=== PATIENT | male | born 1950 | race Caucasian/White ===

== ENCOUNTER 2016-08-22 01:50 | Emergency (ER) | payer BC ==
[2016-08-22] MEDS ORDERED: ONDANSETRON HCL 4 MG/2 ML VIAL IV ONE (01:51)
[2016-08-22] MEDS ORDERED: HYDROmorphone 1 MG INJECTION IV ONE ×2 (01:51→02:11)
[2016-08-22] MEDS ORDERED: NS 1,000 ML IV ONE (01:51)
[2016-08-22] MEDS ORDERED: HYDROmorphone 1 MG INJECTION ONE ×2 (01:52→02:12)
[2016-08-22] MEDS ORDERED: ONDANSETRON HCL 4 MG/2 ML VIAL ONE (01:52)
--- NOTE | 2016-08-22 01:55 | EDPRACDOC ---
- General Information Stated Complaint: KIDNEY STONE Time Seen by Provider: 08/22/16 01:51 Information Source: Patient Mode Of Arrival: Ambulance Home Medications: Home Medications Oxycodone Immediate Release [Oxycodone Immediate Release (OxyIR)] 1 - 2 tabs PO Q4H PRN 10/03/14 Ketorolac Tromethamine 10 mg PO Q6H PRN #20 tab 08/22/16 Ondansetron [Zofran Odt] 4 mg PO Q6H PRN #20 tab.rapdis 08/22/16 Oxycodone Immediate Release [Oxycodone Immediate Release (OxyIR)] 5 mg PO Q6H PRN #30 tab 08/22/16 Promethazine HCl [Phenergan] 25 mg MN Q8H PRN #12 supp 08/22/16 Promethazine [Phenergan] 25 mg PO Q6-8H PRN #20 tab 08/22/16 Tamsulosin HCl [Flomax] 0.4 mg PO DAILY #10 cap 08/22/16 Allergies/Adverse Reactions: Allergies Allergy/AdvReac Type Severity Reaction Status Date / Time No Known Allergies Allergy Verified 10/03/14 07:22 - History of Present Illness Onset: YESTERDAY HPI: PT PRESENTS WITH LEFT FLANK PAIN THAT HE STATES BEGAN YESTERDAY AND THEN WORSENED TONIGHT. STATES HE HAS HX OF KIDNEY STONES. STATES HE HAS HAD NAUSEA AND VOMITING TONIGHT. DENIES FEVER, CHILLS OR DIARRHEA. Pain Began: Reports: Spontaneous Pain Location: Reports: Flank (LEFT FLANK) Pain Severity: Moderate Pain Quality: Reports: Sharp, Stabbing Numbness: Denies: Toes, Foot, Leg, Thigh, Saddle, Other Weakness: Denies: Toes, Foot, Leg, Thigh, Other Oral Intake: Decreased Urinary Output: Normal Modifying Factors: improves with: Movement, Twisting, Breathing, Walking Relevant History of: Reports: Urolithiasis Associated Signs and Symptoms: Reports: Nausea, Vomiting ED Past Medical History - History Reviewed Yes Nurses notes reviewed and agree except as marked - Patient Medical History Respiratory History: Reports: Pneumonia (JULY 2014) GI/ History: Reports: Kidney Stones Musculoskeletal History: Reports: Arthritis Systemic History: Denies: Anemia - Family Medical History Reports: Diabetes (grandmother), Cancer (grandfather, grandmother, mother, father). Denies: Hypertension, Stroke, Cardiac Disorders - Social Medical History Smoking Status: Former smoker EDM Review of Systems - Review of Systems ROS Negative Except as Marked: Yes All systems reviewed and were negative except as marked - Physical Exam Constitutional: Alert (PT APPEARS VERY UNCOMFORTABLE) Oriented to: Time, Person, Place Last recorded Vital Signs: Oxygen Pulse Oxygen Saturation O2 Device Oxygen Flow Rate Fraction of Inspired Oxygen ( FIO2) - HEENT Head: Normal ( normocephalic) Eye Exam: Normal (PERRL, EOMI, Sclera white) Oropharynx: Normal (Pharynx:Moist without exudate,Gums-no swelling) Tympanic Membrane: Normal Nose: No Symptoms Reported (septum midline) Neck: Normal (FROM, trachea at midline) - Respiratory/Cardiovascular Respiratory: Normal - CTA (BBS clear to auscultation without adventitious sounds ) Cardiovascular: Normal (RRR without murmur, gallop or rub) - GI Auscultation: Normal (NABS) Palpation: Normal (Soft,No rebound or guarding, non distended) Tenderness: Moderate, Other (LEFT FLANK) Almeida's Sign: Negative Rectal Exam: Deferred - Musculoskeletal Back: Normal (Non-Tender) Extremities: Normal (Normal tone, Pulses 2+ No cyanosis or edema, FROM) - Integumentary Skin: Normal, Warm, Dry Lymphatics: Normal (no adenopathy) - Neurologic Memory Impaired: Normal Motor Function: Normal (Normal tone, Pulses 2+ No cyanosis or edema, FROM) Cranial Nerve: Normal (CN II-X11 intact sensation, strength 5/5) Cerebellar: Normal Mood Description: Normal Perception: Normal - Differential Diagnosis Urinary obstruction, Urolithiasis, Urinary tract infection - Re-evaluation Re-evaluation 1 Re-evaluation Time: 03:45 (PT FEELING MUCH BETTER AT THIS TIME) - Results 08/22/16 02:05 08/22/16 02:05 Decision Time to Discharge: 03:46 - Departure Disposition: Home Condition: Stable Final Diagnosis: Calculus of left kidney Instructions: Kidney Stones (ED) Education/Counseling Given To: Patient Education/Counseling Given Regarding: Diagnosis, Treatment, Prognosis, Follow Up Referrals: Orestes Haley MD [Staff Physician] - One Week Prescriptions: Ketorolac Tromethamine 10 mg PO Q6H PRN #20 tab PRN Reason: Pain Ondansetron [Zofran Odt] 4 mg PO Q6H PRN #20 tab.rapdis PRN Reason: Nausea/Vomiting Oxycodone Immediate Release [Oxycodone Immediate Release (OxyIR)] 5 mg PO Q6H PRN #30 tab PRN Reason: Pain Promethazine [Phenergan] 25 mg PO Q6-8H PRN #20 tab PRN Reason: Nausea/Vomiting Promethazine HCl [Phenergan] 25 mg MN Q8H PRN #12 supp PRN Reason: Nausea/Vomiting Tamsulosin HCl [Flomax] 0.4 mg PO DAILY #10 cap Additional Instructions: FOLLOW UP WITH PCP NEXT WEEK. RETURN TO THE ED FOR WORSENING SYMPTOMS OR CONCERNS. IF PAIN CONTINUES FOLLOW UP WITH UROLOGIST.
[2016-08-22 02:11] LABS: AUTOMATED BASOPHIL 0.4 % (0-2); AUTOMATED EOSINOPHIL 0.6 % (0-5); AUTOMATED LYMPH 6.5 % (17-44); AUTOMATED MONOCYTE 9.4 % (3-10); AUTOMATED NEUTROPHIL 83.1 % (45-76); MPV 8.5 fL (7.4-10.4)
[2016-08-22 02:19] VITALS: TEMP 97.8; BMI 27.1
[2016-08-22 02:20] LABS: BLOOD UREA NITROGEN 32 MG/DL (9-20); CALC CORRECTED 9.2 MG/DL (8.4-10.2); CALCIUM 8.8 MG/DL (8.4-10.2); CALCULATED OSMOLALITY 274 MOs/Kg (270-290); CHLORIDE 103 mEq/L (98-107); GLUCOSE 114 MG/DL (70-99); SODIUM LEVEL 138 mEq/L (137-146); TOTAL PROTEIN 6.7 G/DL (6.3-8.2)
--- NOTE | 2016-08-22 02:43 | DIRPT ---
CLINICAL DATA: Acute onset of left flank pain. Initial encounter. EXAM: CT ABDOMEN AND PELVIS WITHOUT CONTRAST TECHNIQUE: Multidetector CT imaging of the abdomen and pelvis was performed following the standard protocol without IV contrast. COMPARISON: None. FINDINGS: Minimal bibasilar atelectasis is noted. Scattered coronary artery calcifications are seen. The liver and spleen are unremarkable in appearance. The gallbladder is within normal limits. The pancreas and adrenal glands are unremarkable. Minimal left-sided hydronephrosis is noted, with left-sided perinephric stranding and fluid. This reflects an obstructing 7 x 4 mm stone at the mid to distal left ureter, perhaps 8 cm above the left vesicoureteral junction. Minimal nonspecific right-sided perinephric stranding is noted. A likely tiny hyperdense cyst is noted on the right side. Nonobstructing bilateral renal stones measure up to 6 mm in size. No free fluid is identified. The small bowel is unremarkable in appearance. The stomach is within normal limits. No acute vascular abnormalities are seen. Scattered calcification is noted along the abdominal aorta and its branches. There is slight ectasia of the distal abdominal aorta, though it remains within normal limits. The appendix is not definitely characterized; there is no evidence of appendicitis. Scattered diverticulosis is noted along the descending and sigmoid colon, without evidence of diverticulitis. The bladder is mildly distended and grossly unremarkable. The prostate remains borderline normal in size. A small left inguinal hernia is seen, containing only fat. No inguinal lymphadenopathy is seen. No acute osseous abnormalities are identified. Vacuum phenomenon is noted along the lower lumbar spine. IMPRESSION: 1. Minimal left-sided hydronephrosis, with left-sided perinephric stranding and fluid, reflecting an obstructing 7 x 4 mm stone at the mid to distal left ureter, 8 cm above the left vesicoureteral junction. 2. Nonobstructing bilateral renal stones measure up to 6 mm in size. Likely tiny right renal hyperdense cyst. 3. Scattered calcification along the abdominal aorta and its branches. 4. Scattered diverticulosis along the descending and sigmoid colon, without evidence of diverticulitis. 5. Scattered coronary artery calcifications seen. 6. Small left inguinal hernia, containing only fat. Electronically Signed By: Brennon Combs M.D. On: 08/22/2016 02:41
[2016-08-22] MEDS ORDERED: KETOROLAC TROMETH 30 MG/ML VIAL IV ONE (02:52)
[2016-08-22 03:36] LABS: RBC/URINE TNTC (0-2)
[2016-08-22 03:37] LABS: URINE OCCULT BLOOD 1+ (NEG/TRACE)
[2016-08-22 03:38] LABS: LEUKOCYTES/URINE NEG (NEGATIVE); NITRITE/URINE NEG (NEGATIVE)
[2016-08-22 03:44] VITALS: BP 114/57; PULSE 74
== END 2016-08-22 03:58 | disposition home or self-care (01) ==
LOC: ED 01:50
DX: N20.0 Calculus of kidney (principal)
CPT/HCPCS: 36415; 74176; 80053; 81001; 85025; 96361; 96374; 96375; 96376; 99284; J1170; J1885; J2405